=== PATIENT | female | born 1955 | race Caucasian/White ===

== ENCOUNTER 2024-12-03 08:12 | Inpatient (IN) | payer MEDICARE, OTHER ==
[~2024-12-03] VITALS: Ht 170.2 cm; Wt 56.7 kg
[2024-12-03] MEDS ORDERED: dexaMETHasone SOD PHOSPHATE 2 ML ONE (09:48)
[2024-12-03] MEDS ORDERED: LIDOCAINE 2%-EPI 1:100,000 30 ML VIAL ONE (09:48)
[2024-12-03] MEDS ORDERED: OXYMETAZOLINE HCL NASAL SPRAY 30 ML BOTTLE NS ONE (09:48)
[2024-12-03] MEDS ORDERED: VANCOMYCIN 1 GM VIAL ONE (09:49)
[2024-12-03] MEDS ORDERED: FENTANYL PF 100MCG/2ML AMPUL ONE (09:53)
[2024-12-03] MEDS ORDERED: MIDAZOLAM HCL 2 MG/2ML VIAL ONE (09:53)
[2024-12-03] MEDS ORDERED: LIDOCAINE 2% JEL UROJET 10 ML MM ONE (09:54)
[2024-12-03] MEDS ORDERED: ROCURONIUM BROMIDE 50 MG/5 ML ONE (09:54)
[2024-12-03] MEDS ORDERED: FAMOTIDINE/PF INJ 20 MG/2 ML VIAL IV ONE (09:54)
[2024-12-03] MEDS ORDERED: ONDANSETRON HCL/PF 4 MG/2 ML VIAL IV PRN (14:00)
[2024-12-03] MEDS ORDERED: HYDROMORPHONE 1 MG/1 ML DISP.SYRIN IV PRN (14:00)
[2024-12-03] MEDS: ACETAMINOPHEN 325 MG TABLET PO PRN (15:42)
[2024-12-03 16:00] VITALS: BP 147/84; TEMP 98.6; O2SAT 97
[2024-12-03 20:00] VITALS: BP 156/86; TEMP 97.9; O2SAT 99
[2024-12-03] MEDS: IV NS 0.9% 1,000 ML IV PRN (20:53)
[2024-12-03] MEDS: VANCOMYCIN 1 GM in IV D5W 250ml IV SCH (20:53)
[2024-12-04 08:00] VITALS: BP 134/84; TEMP 97.6; O2SAT 100
== END 2024-12-04 12:00 | disposition home or self-care (01) | DRG 908 ==
LOC: DS 08:12 → MED 13:28
PROVIDERS: ADMIT Internal Medicine; ATTEND Internal Medicine
PROC: 0N5R0ZZ Destruction of Maxilla, Open Approach (ICD-10-PCS; principal; 2024-12-03)
PROC: 0NUR07Z Supplement Maxilla with Autologous Tissue Substitute, Open Approach (ICD-10-PCS; 2024-12-03)
PROC: 0NSR04Z Reposition Maxilla with Internal Fixation Device, Open Approach (ICD-10-PCS; 2024-12-03)
DX: T86.831 Bone graft failure (principal); S02.40CK Maxillary fracture, right side, subsequent encounter for fracture with nonunion; S02.40DK Maxillary fracture, left side, subsequent encounter for fracture with nonunion; I10 Essential (primary) hypertension; Z88.0 Allergy status to penicillin; X58.XXXD Exposure to other specified factors, subsequent encounter; D16.4 Benign neoplasm of bones of skull and face; M27.2 Inflammatory conditions of jaws; T18.0XXA Foreign body in mouth, initial encounter; Y83.2 Surgical operation with anastomosis, bypass or graft as the cause of abnormal reaction of the patient, or of later complication, without mention of misadventure at the time of the procedure; Y92.009 Unspecified place in unspecified non-institutional (private) residence as the place of occurrence of the external cause
CPT/HCPCS: 71045-TC; A4223; A4338; C1713; G0378; J1100; J2250; J2405; J2704; J3010; J3370; J3490; J7030; J7060

== ENCOUNTER 2025-04-07 09:25 | Inpatient (IN) | payer MEDICARE, OTHER ==
[~2025-04-07] VITALS: Ht 167.6 cm; Wt 63.5 kg
[~2025-04-07 09:25] MED LIST: VANCOMYCIN 1 GM in IV D5W 250 ML IV SCH
[2025-04-07] MEDS ORDERED: ACETAMINOPHEN 325 MG TABLET PO PRN (10:00)
[2025-04-07] MEDS ORDERED: FENTANYL PF 100MCG/2ML AMPUL ONE (10:41)
[2025-04-07] MEDS ORDERED: ROCURONIUM BROMIDE 50 MG/5 ML ONE (10:41)
[2025-04-07] MEDS ORDERED: FAMOTIDINE/PF INJ 20 MG/2 ML VIAL IV ONE (10:41)
[2025-04-07] MEDS ORDERED: LIDOCAINE 2%-EPI 1:100,000 30 ML VIAL ONE (11:25)
[2025-04-07] MEDS ORDERED: dexaMETHasone SOD PHOSPHATE 2 ML ONE (11:26)
[2025-04-07] MEDS ORDERED: OXYMETAZOLINE HCL NASAL SPRAY 30 ML BOTTLE NS ONE (11:26)
[2025-04-07] MEDS ORDERED: ONDANSETRON HCL/PF 4 MG/2 ML VIAL IVP PRN ×2 (12:30→14:00)
[2025-04-07] MEDS ORDERED: HYDROMORPHONE 1 MG/1 ML DISP.SYRIN IV PRN (14:00)
[2025-04-07] MEDS ORDERED: IV NS 0.9% 1,000 ML IV PRN (14:00)
[2025-04-07 16:00] VITALS: BP 131/83; TEMP 97.7; O2SAT 97
[2025-04-07] MEDS: ACETAMINOPHEN 325 MG TABLET PO PRN (19:36)
[2025-04-07 20:15] VITALS: BP 101/61; TEMP 98.1; O2SAT 96
[2025-04-07] MEDS: VANCOMYCIN 1 GM in IV D5W 250ml IV SCH (23:04)
[2025-04-08 08:00] VITALS: BP 116/79; TEMP 98.1; O2SAT 96
[2025-04-08 08:24] VITALS: BP 116/79; TEMP 98.2; O2SAT 98
[2025-04-08] MEDS: VANCOMYCIN 1 GM in IV D5W 250 ML IV SCH (09:35)
== END 2025-04-08 14:20 | disposition home or self-care (01) | DRG 497 ==
LOC: DS 09:25 → MED 14:01
PROVIDERS: ADMIT Internal Medicine; ATTEND Internal Medicine
PROC: 0WB30ZX Excision of Oral Cavity and Throat, Open Approach, Diagnostic (ICD-10-PCS; 2025-04-07)
PROC: 0CB0XZZ Excision of Upper Lip, External Approach (ICD-10-PCS; 2025-04-07)
PROC: 0NPW04Z Removal of Internal Fixation Device from Facial Bone, Open Approach (ICD-10-PCS; principal; 2025-04-07 12:10)
DX: T84.69XA Infection and inflammatory reaction due to internal fixation device of other site, initial encounter (principal); M27.2 Inflammatory conditions of jaws; D16.4 Benign neoplasm of bones of skull and face; F17.200 Nicotine dependence, unspecified, uncomplicated; I10 Essential (primary) hypertension; E78.5 Hyperlipidemia, unspecified; Z71.6 Tobacco abuse counseling; Z88.0 Allergy status to penicillin; M19.90 Unspecified osteoarthritis, unspecified site; Z90.722 Acquired absence of ovaries, bilateral; Y92.009 Unspecified place in unspecified non-institutional (private) residence as the place of occurrence of the external cause; Y83.8 Other surgical procedures as the cause of abnormal reaction of the patient, or of later complication, without mention of misadventure at the time of the procedure; K12.30 Oral mucositis (ulcerative), unspecified; D23.30 Other benign neoplasm of skin of unspecified part of face; K13.70 Unspecified lesions of oral mucosa
CPT/HCPCS: 88300-TC; 88305-TC; 88311-TC; A4223; G0378; J1100; J1308; J2405; J2704; J3010; J3370; J3490; J7030; J7040; J7060; J7120